=== PATIENT | female | born 1975 | race Caucasian/White ===

== ENCOUNTER 2019-08-22 11:56 | Inpatient (IN) ==
[2019-08-22 13:00] LABS: Eosinophils # 0.1 K/mcL (0.0-0.6); Hematocrit 34.4 % (35.3-44.9); Hemoglobin 11.9 g/dL (11.5-15.4); Mean Corpuscular HGB Conc 34.6 g/dL (31.6-35.5); Mean Corpuscular Hemoglobin 33.1 pg (28.0-33.3); Mean Corpuscular Volume 95.8 fL (83.0-100.0); Mean Platelet Volume 9.4 fL (9.4-12.4); Platelet Count 172 K/mcL (140-400); Red Blood Count 3.59 M/mcL (3.82-4.97); Red Cell Distribution Width 22.1 % (11.5-14.5); White Blood Count 12.6 K/mcL (4.3-11.1)
[2019-08-22 13:06] LABS: INR 1.9; Prothrombin Time 21.6 Seconds (9.4-12.1)
[2019-08-22 13:23] LABS: Monocytes # 1.4 K/mcL (0.0-1.3); Neutrophils # 9.1 K/mcL (1.6-8.9)
[2019-08-22 13:24] LABS: Platelet Estimate Normal (Normal); Reactive Lymphocytes Present (Not Present)
[2019-08-22 13:25] LABS: Anisocytosis 2+ (Not Present); Poikilocytosis 1+ (Not Present); Polychromasia 1+ (Not Present)
[2019-08-22 13:35] LABS: Alanine Aminotransferase 28 Units/L (7-52); Albumin 2.6 g/dL (3.5-5.7); Albumin/Globulin Ratio 0.7 (1.1-2.2); Alkaline Phosphatase 92 Units/L (34-104); Aspartate Amino Transferase 44 Units/L (13-39); BUN/Creatinine Ratio 18 (6-26); Bilirubin,Direct 2.4 mg/dL (0.0-0.2); Bilirubin,Total 5.4 mg/dL (0.3-1.0); Blood Urea Nitrogen 16 mg/dL (6-20); Calcium 8.3 mg/dL (8.6-10.3); Carbon Dioxide 21 mEq/L (23-29); Chloride 89 mEq/L (98-107); Globulin 3.6 g/dL (2.4-3.5); Glucose 100 mg/dL (70-105); Lipase 94 Units/L (11-82); Osmolality,Calculated 249 (280-300); Potassium 4.2 mEq/L (3.5-5.1); Sodium 119 mEq/L (136-145); Total Protein 6.2 g/dL (6.4-8.9); eGFR For African Americans > 60 (> 60); eGFR For Non-African Americans > 60 (> 60)
[2019-08-22] MEDS ORDERED: 0.9 % Sodium Chloride 500 ML IVC STA (13:54)
[2019-08-22 14:10] LABS: Bilirubin,Urine Moderate (Negative); Blood,Urine Negative (Negative); Color,Urine Orange (Yellow); Glucose,Urine (UA) Normal (Normal); Ketones,Urine Negative (Negative); Leukocyte Esterase,Urine Trace (Negative); Nitrite,Urine Negative (Negative); PH,Urine 5.5 pH Units (5.0-8.0); Protein,Urine Negative (Neg-Trace); Specific Gravity,Urine 1.017 (1.010-1.025)
[2019-08-22 14:13] LABS: Hyaline Casts,Urine Few per lpf (None-Few); Squamous Epithelial Cell,Urine Many per lpf (None-Few); WBC,Urine 0-3 per hpf (0-3)
[2019-08-22 14:16] LABS: Clarity,Urine Slightly Hazy (Clear)
[2019-08-22 14:35] LABS: Mucus,Urine Moderate per lpf (Few)
[2019-08-22 14:36] LABS: Bacteria,Urine Moderate per hpf (None-Few)
[2019-08-22 14:37] LABS: Amorphous Sediment,Urine Few per hpf (Few)
[2019-08-22] MEDS ORDERED: Naloxone 0.4 MG/ML INJ IVP PRN (15:46)
[2019-08-22] MEDS: Albumin 25% 25gram/100mL 25 GM/100 ML IV.SOLN IVC SCH ×2 (18:09→20:05)
[2019-08-22] MEDS: *HR* Heparin 5,000 UNIT/ML VIAL SQ SCH (18:10)
[2019-08-22 19:05] LABS: BUN/Creatinine Ratio 21 (6-26); Blood Urea Nitrogen 18 mg/dL (6-20); Calcium 7.8 mg/dL (8.6-10.3); Carbon Dioxide 22 mEq/L (23-29); Chloride 91 mEq/L (98-107); Glucose 124 mg/dL (70-105); Osmolality,Calculated 253 (280-300); Potassium 4.3 mEq/L (3.5-5.1); Sodium 120 mEq/L (136-145); eGFR For African Americans > 60 (> 60); eGFR For Non-African Americans > 60 (> 60)
[2019-08-22 22:48] LABS: BUN/Creatinine Ratio 22 (6-26); Blood Urea Nitrogen 19 mg/dL (6-20); Calcium 8.1 mg/dL (8.6-10.3); Carbon Dioxide 23 mEq/L (23-29); Chloride 92 mEq/L (98-107); Glucose 96 mg/dL (70-105); Osmolality,Calculated 254 (280-300); Potassium 4.1 mEq/L (3.5-5.1); Sodium 121 mEq/L (136-145); eGFR For African Americans > 60 (> 60); eGFR For Non-African Americans > 60 (> 60)
[2019-08-23 00:25] LABS: Amylase,Peritoneal Fluid 18 Units/L (No Ref Range); Glucose,Peritoneal Fluid 86 mg/dL (No Ref Range); LDH,Peritoneal Fluid 103 Units/L (No Ref Range); Total Protein,Peritoneal Fluid < 3.0 g/dL
[2019-08-23 00:39] LABS: Appearance of Peritoneal Fl CLEAR (Clear)
[2019-08-23 00:55] LABS: RBC,Peritoneal Fluid 0.004 M/mcL
[2019-08-23 01:28] LABS: Basophils,Peritoneal Fluid 0 %; Eosinophils,Peritoneal Fluid 0 %
[2019-08-23 01:57] LABS: BUN/Creatinine Ratio 23 (6-26); Blood Urea Nitrogen 19 mg/dL (6-20); Calcium 8.1 mg/dL (8.6-10.3); Carbon Dioxide 22 mEq/L (23-29); Chloride 92 mEq/L (98-107); Glucose 93 mg/dL (70-105); Osmolality,Calculated 254 (280-300); Potassium 4.3 mEq/L (3.5-5.1); Sodium 121 mEq/L (136-145); eGFR For African Americans > 60 (> 60); eGFR For Non-African Americans > 60 (> 60)
[2019-08-23] MEDS: *HR* Heparin 5,000 UNIT/ML VIAL SQ SCH ×2 (02:43→16:35)
[2019-08-23 05:40] LABS: Basophils % 0.2 %; Eosinophils # 0.1 K/mcL (0.0-0.6); Eosinophils % 0.6 %; Hematocrit 27.6 % (35.3-44.9); Immature Granulocytes % 0.8 % (0-4); Lymphocytes # 1.2 K/mcL (0.6-4.6); Lymphocytes % 11.7 %; Mean Corpuscular HGB Conc 34.4 g/dL (31.6-35.5); Mean Corpuscular Volume 95.8 fL (83.0-100.0); Mean Platelet Volume 9.5 fL (9.4-12.4); Monocytes # 1.6 K/mcL (0.0-1.3); Monocytes % 15.4 %; Neutrophils # 7.6 K/mcL (1.6-8.9); Platelet Count 127 K/mcL (140-400); Red Blood Count 2.88 M/mcL (3.82-4.97); Red Cell Distribution Width 21.9 % (11.5-14.5); Segmented Neutrophils % 71.3 %; White Blood Count 10.6 K/mcL (4.3-11.1)
[2019-08-23 05:41] LABS: Hemoglobin 9.5 g/dL (11.5-15.4)
[2019-08-23 06:13] LABS: BUN/Creatinine Ratio 23 (6-26); Blood Urea Nitrogen 20 mg/dL (6-20); Calcium 8.1 mg/dL (8.6-10.3); Carbon Dioxide 21 mEq/L (23-29); Chloride 91 mEq/L (98-107); Glucose 82 mg/dL (70-105); Magnesium 1.9 mg/dL (1.6-2.6); Osmolality,Calculated 252 (280-300); Phosphorous 4.3 mg/dL (2.7-4.5); Potassium 4.5 mEq/L (3.5-5.1); Sodium 120 mEq/L (136-145); eGFR For African Americans > 60 (> 60); eGFR For Non-African Americans > 60 (> 60)
[2019-08-23] MEDS ORDERED: Albumin 25% 25gram/100mL 25 GM/100 ML IV.SOLN IVPB ONE (07:49)
[2019-08-23] MEDS: Metoprolol XL (24 HR) Succ 50 MG TAB.ER.24H PO SCH (07:49)
[2019-08-23] MEDS ORDERED: Furosemide 20 MG TABLET PO SCH (09:00)
[2019-08-23 15:46] LABS: BUN/Creatinine Ratio 22 (6-26); Blood Urea Nitrogen 22 mg/dL (6-20); Calcium 8.1 mg/dL (8.6-10.3); Carbon Dioxide 22 mEq/L (23-29); Chloride 95 mEq/L (98-107); Glucose 111 mg/dL (70-105); Osmolality,Calculated 260 (280-300); Potassium 4.4 mEq/L (3.5-5.1); Sodium 123 mEq/L (136-145); eGFR For African Americans > 60 (> 60); eGFR For Non-African Americans > 60 (> 60)
[2019-08-23 20:04] LABS: Chloride,Urine < 15 mEq/L; Creatinine,Urine 126 mg/dL; Sodium, Urine < 10.0 mEq/L
[2019-08-23] MEDS ORDERED: Ibuprofen 800 MG TABLET PO ONE (21:34)
[2019-08-24] MEDS: *HR* Heparin 5,000 UNIT/ML VIAL SQ SCH (05:04)
[2019-08-24 06:59] LABS: Basophils % 0.2 %; Eosinophils # 0.1 K/mcL (0.0-0.6); Eosinophils % 0.9 %; Hematocrit 29.4 % (35.3-44.9); Hemoglobin 9.6 g/dL (11.5-15.4); Lymphocytes # 1.2 K/mcL (0.6-4.6); Lymphocytes % 11.6 %; Mean Corpuscular HGB Conc 32.7 g/dL (31.6-35.5); Mean Corpuscular Hemoglobin 32.4 pg (28.0-33.3); Mean Corpuscular Volume 99.3 fL (83.0-100.0); Mean Platelet Volume 9.4 fL (9.4-12.4); Monocytes # 1.1 K/mcL (0.0-1.3); Monocytes % 10.6 %; Neutrophils # 7.5 K/mcL (1.6-8.9); Platelet Count 126 K/mcL (140-400); Red Blood Count 2.96 M/mcL (3.82-4.97); Red Cell Distribution Width 22.3 % (11.5-14.5); Segmented Neutrophils % 75.7 %; White Blood Count 9.9 K/mcL (4.3-11.1)
[2019-08-24 07:19] LABS: Albumin 2.8 g/dL (3.5-5.7); Calcium 8.3 mg/dL (8.6-10.3); Phosphorous 4.7 mg/dL (2.7-4.5); Potassium 4.3 mEq/L (3.5-5.1)
[2019-08-24] MEDS: Metoprolol XL (24 HR) Succ 50 MG TAB.ER.24H PO SCH (09:34)
[2019-08-24 11:18] VITALS: BP 97/58
== END 2019-08-24 15:58 | disposition home or self-care (01) | DRG 433 ==
LOC: EMEROOARM 11:56 → 2ANU 11:56
PROVIDERS: ADMIT Pharmacist; ATTEND Pharmacist